=== PATIENT | female | born 1960 | race Hispanic/Latino ===

== ENCOUNTER 2023-10-13 22:29 | Emergency (ER) | payer SELFPAY ==
[2023-10-14] MEDS ORDERED: ETOMIDATE 20 MG/10 ML VIAL IV ONE (00:43)
[2023-10-14] MEDS ORDERED: HYDROCODONE/APAP 10/325 TAB ONE (03:57)
--- NOTE | 2023-10-14 03:58 | ER ---
Nurse's Notes [facility] Name: Jackie Sena Age: 62 yrs Sex: Female : 1960 Arrival Date: 10/13/2023 Time: 22:29 Bed 2 Private MD: Diagnosis: Ulnar styloid and distal radial metaphyseal fractures, right;Right distal radius fracture with dorsal displacement. Presentation: 10/12 23:01 Chief complaint: Patient states: Fell and hurt right wrist. Coronavirus screen: At this vc1 time, the client does not indicate any symptoms associated with coronavirus-19. Ebola Screen: Patient negative for fever greater than or equal to 101.5 degrees Fahrenheit, and additional compatible Ebola Virus Disease symptoms Patient denies exposure to infectious person. Patient denies travel to an Ebola-affected area in the 21 days before illness onset. No symptoms or risks identified at this time. Initial Sepsis Screen: Does the patient meet any 2 criteria? No. Patient's initial sepsis screen is negative. Does the patient have a suspected source of infection? No. Patient's initial sepsis screen is negative. Risk Assessment: Do you want to hurt yourself or someone else? Patient reports no desire to harm self or others. Onset of symptoms was October 13, 2023. 23:01 Method Of Arrival: Ambulatory vc1 23:01 Acuity: DEWAYNE 4 vc1 Triage Assessment: 10/13 00:20 Injury Description: Fell on right wrist, with edema noted to affected area. jw7 Historical: - Allergies: 10/12 23:03 No Known Allergies; vc1 - PMHx: 23:03 Hypertensive disorder; vc1 - PSHx: 23:03 None; vc1 - Immunization history:: Client reports having NOT received the Covid vaccine. - Infectious Disease History:: Denies. - Social history:: Smoking status: Patient denies any tobacco usage or history of. Screenin:02 [facility] ED Fall Risk Assessment (Adult) History of falling in the last 3 months, vc1 including since admission No falls in past 3 months (0 pts) Confusion or Disorientation No (0 pts) Intoxicated or Sedated No (0 pts) Impaired Gait No (0 pts) Mobility Assist Device Used No (0 pt) Altered Elimination No (0 pt) Score/Fall Risk Level 0 - 2 = Low Risk Oriented to surroundings, Maintained a safe environment, Educated pt \T\ family on fall prevention, incl call for assistance when getting out of bed. Abuse screen: Denies threats or abuse. Nutritional screening: No deficits noted. Tuberculosis screening: No symptoms or risk factors identified. Assessment: 10/13 00:20 General: Appears in no apparent distress. uncomfortable, Behavior is calm, cooperative, jw7 appropriate for age. Pain: Complains of pain in right wrist Pain does not radiate. Pain currently is 10 out of 10 on a pain scale. Quality of pain is described as sharp, throbbing, Pain began suddenly, Is continuous. Neuro: Level of Consciousness is awake, alert, obeys commands, Oriented to person, place, time, situation, Appropriate for age. Cardiovascular: Denies chest pain, shortness of breath, Heart tones S1 S2 present Capillary refill < 3 seconds Clubbing of nail beds is absent JVD is absent Patient's skin is warm and dry. Respiratory: Airway is patent Trachea midline Respiratory effort is even, unlabored, Respiratory pattern is regular, symmetrical, Breath sounds are clear bilaterally. GI: Abdomen is round non-distended, Bowel sounds present X 4 quads. Abd is soft and non tender X 4 quads. : No deficits noted. No signs and/or symptoms were reported regarding the genitourinary system. EENT: No deficits noted. No signs and/or symptoms were reported regarding the EENT system. Derm: Skin is intact, is healthy with good turgor, Skin is dry, Skin is normal, Skin temperature is warm. Derm:. Musculoskeletal: Circulation, motion, and sensation intact. Range of motion: limited in right wrist Swelling present in right arm and right wrist Reports pain in right wrist. 01:00 Reassessment: Patient appears in no apparent distress at this time. No changes from jw7 previously documented assessment. Patient and/or family updated on plan of care and expected duration. Pain level reassessed. Patient is alert, oriented x 3, equal unlabored respirations, skin warm/dry/pink. 02:00 Reassessment: Patient appears in no apparent distress at this time. No changes from jw7 previously documented assessment. Patient and/or family updated on plan of care and expected duration. Pain level reassessed. Patient is alert, oriented x 3, equal unlabored respirations, skin warm/dry/pink. 03:00 Reassessment: Patient appears in no apparent distress at this time. Patient and/or jw7 family updated on plan of care and expected duration. Pain level reassessed. Patient is alert, oriented x 3, equal unlabored respirations, skin warm/dry/pink. Patient states feeling better. Patient states symptoms have improved. 04:00 Reassessment: Patient appears in no apparent distress at this time. No changes from jw7 previously documented assessment. Patient and/or family updated on plan of care and expected duration. Pain level reassessed. Patient is alert, oriented x 3, equal unlabored respirations, skin warm/dry/pink. Vital Signs: 10/12 22:53 BP 139 / 78; Pulse 57; Resp 18; Temp 97.9; Pulse Ox 100% on R/A; Weight 90.72 kg; vk Height 5 ft. 1 in. ; 10/13 00:00 BP 154 / 65; Pulse 72; Resp 18 S; Pulse Ox 98% on R/A; jw7 01:00 BP 160 / 98; Pulse 67; Resp 12 S; Pulse Ox 100% on R/A; jw7 02:00 BP 157 / 84; Pulse 77; Resp 20 S; Pulse Ox 100% on R/A; jw7 03:00 BP 156 / 91; Pulse 59; Resp 16 S; Pulse Ox 100% on R/A; jw7 04:00 BP 141 / 83; Pulse 58; Resp 17 S; Pulse Ox 98% on R/A; jw7 10/12 22:53 Body Mass Index 37.79 (90.72 kg, 154.94 cm) vk ED Course: 10/12 22:29 Patient arrived in ED. im 22:31 Sunshine Bro PA-C is PHCP. sb4 22:31 Zhao Blanco MD is Attending Physician. sb4 23:00 Loida Ely, PANCHO is Primary Nurse. vc1 23:02 Triage completed. vc1 23:02 Arm band placed on left wrist. vc1 23:04 Wrist Right 3 View XRAY In Process Unspecified. EDMS 23:06 Patient has correct armband on for positive identification. Bed in low position. Call vc1 light in reach. 10/13 00:30 Provided Education on: Conscious Sedation. jw7 00:30 Client placed on continuous cardiac and pulse oximetry monitoring. NIBP monitoring jw7 applied. hall monitor on. Pulse ox on. NIBP on. 01:00 Door closed. Noise minimized. Warm blanket given. jw7 02:00 Assisted to bathroom. jw7 02:07 Assist provider with reduction of right wrist using traction, manipulation, Set up for jw7 procedure. Performed by Zhao Blanco MD Patient tolerated well. Orthoglass splint: Sugar tong splint applied on right arm. 03:09 Hand Right 2 View XRAY In Process Unspecified. EDMS 03:09 Forearm Right XRAY In Process Unspecified. EDMS 03:57 Montrell Li MD is Referral Physician. sp4 04:08 IV discontinued, intact, bleeding controlled, No redness/swelling at site. Pressure jw7 dressing applied. Administered Medications: 02:07 Drug: Etomidate IVP 10 mg IVP once Route: IVP; Site: left antecubital; jw7 02:26 Follow up: Response: No adverse reaction; Marked relief of symptoms jw7 04:01 Drug: [place] PO 10 mg-325 mg 1 tabs PO once Route: PO; jj7 04:08 Follow up: Response: No adverse reaction; Marked relief of symptoms; Pain is decreased jw7 Medication: 10/12 23:02 VIS not applicable for this client. vc1 Outcome: 10/13 03:58 Discharge ordered by . sp4 04:08 Patient left the ED. jw7 04:08 Discharged to home ambulatory, jw7 04:08 Condition: stable 04:08 Discharge instructions given to patient, Instructed on discharge instructions, follow up and referral plans. medication usage, Demonstrated understanding of instructions, follow-up care, medications, Prescriptions given X 2, Signatures: Dispatcher [employer] EDHI Loida Ely RN RN vc1 Ariadne Pardo RN RN jw7 Carrington Molina RN RN jjSunshine Rosa PA-C PAZhao Rodarte MD MD sp4 Jaja Oates Vivian vk Corrections: (The following items were deleted from the chart) 04:07 00:00 BP 160 / 98; Pulse 67bpm; Resp 12bpm; Spontaneous; Pulse Ox 100% RA; jw7 jw7
--- NOTE | 2023-10-14 03:58 | EDPHYS ---
Physician Documentation [facility] Name: Jackie Sena Age: 62 yrs Sex: Female : 1960 Arrival Date: 10/13/2023 Time: 22:29 Bed 2 Private MD: ED Physician Zhao Blanco HPI: 10/12 22:52 This 62 yrs old Female presents to ER via Unassigned with complaints of Wrist sb4 Injury. 22:52 The patient or guardian reports injury, pain. The complaints affect the right wrist sb4 diffusely. Context: The problem was sustained at home, resulted from a fall, slipped. Onset: The symptoms/episode began/occurred just prior to arrival. Modifying factors: The symptoms are alleviated by holding still, the symptoms are aggravated by movement. Associated signs and symptoms: The patient has no apparent associated signs or symptoms. Compartment Syndrome negative for numbness, tingling. The patient has not experienced similar symptoms in the past. Historical: - Allergies: 23:03 No Known Allergies; vc1 - PMHx: 23:03 Hypertensive disorder; vc1 - PSHx: 23:03 None; vc1 - Immunization history:: Client reports having NOT received the Covid vaccine. - Infectious Disease History:: Denies. - Social history:: Smoking status: Patient denies any tobacco usage or history of. ROS: 22:52 Constitutional: Negative for fever, chills, and weight loss, sb4 22:52 MS/extremity: Positive for injury or acute deformity, pain, of the right wrist, 22:52 All other systems are negative, Exam: 22:52 Hand exam: ROM: limited active range of motion due to pain, limited passive range of sb4 motion due to pain, Circulation is intact in all extremities. Pulses: are normal with no appreciated deficits, Perfusion: the extremity is normally perfused throughout, sensation intact. 22:52 Constitutional: This is a well developed, well nourished patient who is awake, alert, and in no acute distress. Head/Face: Normocephalic, atraumatic. Eyes: Extra-ocular motions intact. Periorbital areas with no swelling, redness, or edema. ENT: Mucous membranes moist. Vital Signs: 22:53 BP 139 / 78; Pulse 57; Resp 18; Temp 97.9; Pulse Ox 100% on R/A; Weight 90.72 kg; vk Height 5 ft. 1 in. ; 10/13 00:00 BP 154 / 65; Pulse 72; Resp 18 S; Pulse Ox 98% on R/A; jw7 01:00 BP 160 / 98; Pulse 67; Resp 12 S; Pulse Ox 100% on R/A; jw7 02:00 BP 157 / 84; Pulse 77; Resp 20 S; Pulse Ox 100% on R/A; jw7 03:00 BP 156 / 91; Pulse 59; Resp 16 S; Pulse Ox 100% on R/A; jw7 04:00 BP 141 / 83; Pulse 58; Resp 17 S; Pulse Ox 98% on R/A; 7 10/12 22:53 Body Mass Index 37.79 (90.72 kg, 154.94 cm) Procedures: 02:16 Splinting: Splint applied to right wrist, right hand and palmar aspect of right forearm sp4 using Orthoglass splint, Right arm sugar-tong splint for stabilization of right wrist fracture. applied by myself. post reduction film - reveals improved alignment, Examined by me, post splint application: neurovascular intact, 2+ distal pulses palpable, brisk capillary refill noted, Patient tolerated well, Splint applied under moderate sedation. Reduction: of the right wrist, using traction, manipulation, Immobilized with OCL splint, Patient tolerated well. Post reduction film - reveals improved alignment. Reduction done under moderate sedation. Moderate sedation: Pre-procedure assessment: the patient has been NPO 4 hour(s) prior to arrival, ASA physical classification: II - mild/mod systemic disease that does not interfere with daily routines, Airway assessment: able to hyperextend neck, able to maintain airway, can open mouth without difficulty, Mallampati classification of tongue size: III - uvula can be visualized, but faucial pillars and soft palate are not appreciated, Monitoring during procedure: chemical equipment repairer, continuous pulse oximetry, nurse at bedside at all times, Medications employed: Etomidate, 10 mg(s), Moderate sedation with etomidate., Post-procedure assessment: the patient is moderately sedated, Rodrigues sedation score: 4 - brisk response to a light glabellar tap, Respiratory status: requires supplemental oxygen to maintain acceptable oxygen saturation, a reversal agent was not used, well tolerated . MDM: 10/12 22:36 Patient medically screened. sb4 10/13 00:22 Data reviewed: vital signs, nurses notes, radiologic studies, I have discussed the sb4 patient's presentation/case with the attending Emergency Department Physician; and as a result, I will discharge patient. Care significantly affected by the following chronic conditions: Hypertension. Transition of care: After a detail discussion of the patient's case, care is transferred to Zhao Blanco MD. 05:04 ED course: CLINICAL HISTORY: after reduction COMPARISON: 10/13/2023. TECHNIQUE: XR HAND sp4 1-2 VIEWS RIGHT 10/14/2023 2:15 AM CDT FINDINGS: Again noted are fractures of the distal radius and ulna with mild displacement. Joint spaces are preserved. There is diffuse soft tissue swelling of the distal forearm. Splint material is present. IMPRESSION: Relatively unchanged alignment of distal forearm fractures following closed reduction. . ED course: CLINICAL HISTORY: after reduction COMPARISON: 10/13/2023. TECHNIQUE: XR FOREARM RIGHT 10/14/2023 2:16 AM CDT FINDINGS: Again noted are fractures of the distal radius and ulna with mild displacement. Joint spaces are preserved. There is diffuse soft tissue swelling of the distal forearm. Splint material is present. IMPRESSION: Relatively unchanged alignment of distal forearm fractures following closed reduction. . ED course: EXAM: XR Right Wrist Complete, 3 or More Views CLINICAL HISTORY: The patient is 62 years old and is Female; PAIN TECHNIQUE: Frontal, lateral and oblique views of the right wrist. COMPARISON: No relevant prior studies available. FINDINGS: BONES/JOINTS: Bones are osteopenic. An ulnar styloid fracture is present. A comminuted and impacted distal radial metaphyseal fracture is noted with angulation at the fracture site. No dislocation. SOFT TISSUES: Soft tissue swelling of the wrist is noted. No radiopaque foreign body. IMPRESSION: Ulnar styloid and distal radial metaphyseal fractures. . 10/12 22:52 Order name: Wrist Right 3 View XRAY sb4 10/13 02:15 Order name: Hand Right 2 View XRAY sp4 10/13 02:16 Order name: Forearm Right XRAY sp4 10/13 00:10 Order name: Moderate Sedation; Complete Time: 02:25 sp4 10/13 00:11 Order name: Splint; Complete Time: 02:25 sp4 05/30 00:11 Order name: Saline Lock; Complete Time: 00:56 sp4 10/13 03:59 Order name: Sling; Complete Time: 04:01 sp4 Administered Medications: 02:07 Drug: Etomidate IVP 10 mg IVP once Route: IVP; Site: left antecubital; jw7 02:26 Follow up: Response: No adverse reaction; Marked relief of symptoms jw7 04:01 Drug: [place] PO 10 mg-325 mg 1 tabs PO once Route: PO; jj7 04:08 Follow up: Response: No adverse reaction; Marked relief of symptoms; Pain is decreased jw7 Disposition: 02:23 Co-signature as Attending Physician, Zhao Blanco MD I agree with the assessment sp4 and plan of care. I reviewed the patient's care provided by Advanced Practice Provider \T\ agree w/ the diagnosis \T\ care plan. I personally saw the pt \T\ performed a substantive portion of the visit, incldng all aspects of the (History/Exam/Medical Decision Making). 13:03 Chart complete. sb4 Disposition Summary: 10/14/23 03:58 Discharge Ordered Notes: Location: Home sp4 Problem: new sp4 Symptoms: have improved sp4 Condition: Stable sp4 Diagnosis - Ulnar styloid and distal radial metaphyseal fractures, right sp4 - Right distal radius fracture with dorsal displacement. sp4 Followup: sb4 - With: Montrell Li MD - When: 2 - 3 days - Reason: Recheck today's complaints, Re-evaluation by your physician Discharge Instructions: - Discharge Summary Sheet sb4 - Wrist Fracture Treated With Immobilization, [id number] sb4 Forms: - Prescription Opioid Use sp4 Prescriptions: - Ibuprofen 600 mg Oral Tablet - take 1 tablet ORAL route every 6 hours As needed take with food; 30 tablet; sp4 Refills: 0, Product Selection Permitted - Tramadol 50 mg Oral Tablet - take 1 tablet ORAL route every 8 hours as needed; 12 tablet; Refills: 0, sp4 Product Selection Permitted Signatures: Dispatcher [employer] Loida Rodrigues RN RN vc1 Ariadne Pardo RN RN jw7 Carrington Molina RN RN jSunshine Gresham PA-C PASimone sb4 Zhao Blanco MD MD sp4 Corrections: (The following items were deleted from the chart) 02:16 02:16 Hand Right 2 View+[id number].[email or web address].[email or web address] ordered. EDMS EDMS
[2023-10-14 04:19] VITALS: TEMP 97.9
[2023-10-14 04:54] VITALS: BP 141/83; O2SAT 98
--- NOTE | 2023-10-14 11:36 | RAD REPORT ---
EXAM DESCRIPTION: RAD - Wrist Right 3 View - 10/13/2023 11:03 pm CLINICAL HISTORY: The patient is 62 years old and is Female; PAIN TECHNIQUE: Frontal, lateral and oblique views of the right wrist. COMPARISON: No relevant prior studies available. FINDINGS: BONES/JOINTS: Bones are osteopenic. An ulnar styloid fracture is present. A comminuted a nd impacted distal radial metaphyseal fracture is noted with angulation at the fracture site. No di slocation. SOFT TISSUES: Soft tissue swelling of the wrist is noted. No radiopaque foreign body. IMPRESSION: Ulnar styloid and distal radial metaphyseal fractures. Electronically signed by: Tiffanie Cardona MD 10/13/2023 11:57 PM CDT RP Due to temporary technical issues with the PACS/Fluency reporting system, reports are being signed by the in house radiologist without review as a courtesy to ensure prompt reporting. The interpreting r adiologist is fully responsible for the content of the report.
--- NOTE | 2023-10-14 12:04 | RAD REPORT ---
EXAM DESCRIPTION: RAD - Hand Right 2 View - 10/14/2023 3:07 am CLINICAL HISTORY: After reduction COMPARISON: 10/13/2023. TECHNIQUE: XR HAND 1-2 VIEWS RIGHT 10/14/2023 2:15 AM CDT FINDINGS: Again noted are fractures of the distal radius and ulna with mild displacement. Joint spac es are preserved. There is diffuse soft tissue swelling of the distal forearm. Splint material is p resent. IMPRESSION: Relatively unchanged alignment of distal forearm fractures following closed reduction. Electronically signed by: Alverto Schaefer MD 10/14/2023 04:41 AM CDT RP Due to temporary technical issues with the PACS/Fluency reporting system, reports are being signed by the in house radiologist without review as a courtesy to ensure prompt reporting. The interpreting r adiologist is fully responsible for the content of the report.
--- NOTE | 2023-10-14 12:05 | RAD REPORT ---
EXAM DESCRIPTION: RAD - Forearm Right - 10/14/2023 3:07 am CLINICAL HISTORY: After reduction COMPARISON: 10/13/2023. TECHNIQUE: XR FOREARM RIGHT 10/14/2023 2:16 AM CDT FINDINGS: Again noted are fractures of the distal radius and ulna with mild displacement. Joint spac es are preserved. There is diffuse soft tissue swelling of the distal forearm. Splint material is p resent. IMPRESSION: Relatively unchanged alignment of distal forearm fractures following closed reduction. Electronically signed by: Alverto Schaefer MD 10/14/2023 04:41 AM CDT RP Due to temporary technical issues with the PACS/Fluency reporting system, reports are being signed by the in house radiologist without review as a courtesy to ensure prompt reporting. The interpreting r adiologist is fully responsible for the content of the report.
== END 2023-10-14 04:08 | disposition home or self-care (01) ==
LOC: ER 22:29
DX: S52.611A Displaced fracture of right ulna styloid process, initial encounter for closed fracture (principal); S52.501A Unspecified fracture of the lower end of right radius, initial encounter for closed fracture
CPT/HCPCS: 96374; 99285